=== PATIENT | male | born 1980 | race Caucasian/White ===

== ENCOUNTER 2021-05-10 14:02 | Emergency (ER) | payer MEDICARE, SELFPAY ==
--- NOTE | 2021-05-10 14:35 | HMH.EDUTC ---
[facility] [place] Disposition Clinical Impression: Viral syndrome Pharyngitis Qualifiers: Pharyngitis/tonsillitis etiology: unspecified etiology Qualified Code(s): J02.9 - Acute pharyngitis, unspecified Disposition: Home, Self-Care Condition on Discharge: Good Instructions: DI for Pharyngitis/Tonsillopharyngitis -- Adult, DI for COVID-19 (Suspected or Confirmed ), Preventing the Spread of Coronavirus Discharge Instructions Additional Instructions: Drink plenty of fluids. Take tylenol or ibuprofen for pain or fever. Take the medications as directed. Follow up with your regular doctor. GO TO THE ER FOR ANY WORSENING SYMPTOMS Quarantine until you know the results of your covid-19 test. Notify your school or workplace of your results and follow their instructions regarding return to work/school. Prescriptions: Ondansetron [Zofran 4mg ODT] 4 mg PO Q8HP PRN #20 tab PRN Reason: Nausea Transmission Status: Received by [facility] Benzonatate [Benzonatate 100mg cap] 100 mg PO TIDP PRN #30 cap PRN Reason: Cough Transmission Status: Received by [facility] Azithromycin [Z-Link 250mg Tab*] 250 mg PO UD DOSE PK #6 tab Transmission Status: Received by [facility] Referrals: Provider,Referral, [Primary Care Provider] - Time of Disposition: 15:05 Medical Decision Making - Medical Records Medical records reviewed: No: I reviewed the patient's medical records. - Ar Inquiry Pt receiving controlled substance: No Vital Signs: 05/10/21 14:51 05/10/21 15:01 Temperature 99.4 F 99.4 F Temperature Source Oral Pulse Rate 98 H Pulse Rate [Left] 98 H Respiratory Rate 18 18 Blood Pressure 121/75 Blood Pressure [Right Arm] 121/75 Blood Pressure Mean [Right Arm] 90 02 Sat by Pulse Oximetry 95 - Lab Data Lab results reviewed: Yes: I reviewed the patient's lab results. Lab Results 05/10/21 14:35: Strep Scn Rapid Clinic Negative Orders (Tests/Meds): ORDERS Category Date Time Status Strep Screen Confirmation Stat Micro 05/10/21 14:35 Received [facility] [place] HPI - General Stated complaint: cough,sore throat,congestion Time Seen by Provider: 05/10/21 14:35 - History of Present Illness Provider Complaint: He states for the past 2 days he has had a headache, chills, sore throat and body aches. He denies fever. He has been fully vaccinated against covid-19. - Related Data Previous Rx's Medication Instructions Recorded Azithromycin [Z-Link 250mg Tab*] 250 mg PO UD DOSE PK #6 tab 05/10/21 Benzonatate [Benzonatate 100mg 100 mg PO TIDP PRN #30 cap 05/10/21 cap] Ondansetron [Zofran 4mg ODT] 4 mg PO Q8HP PRN #20 tab 05/10/21 Allergies Allergy/AdvReac Type Severity Reaction Status Date / Time No Known Allergies Allergy Verified 05/10/21 14:53 [facility] History - Hepatitis A Screen Attestation statement:: This patient has been screened for Hepatitis A risk factors. I have reviewed the patient's past medical history: Yes ROS Obtained: Yes All systems reviewed & no additional complaints - Constitutional Constitutional: Reports as per HPI - Eyes Eyes: Denies eye discharge - ENT Ears, Nose, Mouth, and Throat: Reports as per HPI - Cardiovascular Cardiovascular: Denies chest pain - Respiratory Respiratory: Reports as per HPI - Gastrointestinal Gastrointestingal: Reports: as per HPI Physical Exam - General General appearance: alert, in no apparent distress - Head Head exam: atraumatic, normocephalic, normal inspection - Eye Eye exam: Present: normal appearance, PERRL, EOMI - ENT ENT exam: Present: normal exam, normal oropharynx, mucous membranes moist, TM's normal bilaterally, normal external ear exam - Neck Neck exam: Present: normal inspection, full ROM, trachea midline. Absent: meningismus, lymphadenopathy - Chest Chest inspection: Present: normal inspection, symmetric chest wall rise. Absent: tendernes
[2021-05-10 14:47] LABS: UTC Strep Screen (Rapid) Negative (Negative)
[2021-05-10 14:51] VITALS: BP 121/75; PULSE 98; RESP 18; TEMP 37.4; O2SAT 95; BMI 31.0
[2021-05-10 15:01] VITALS: BP 121/75; PULSE 98; RESP 18; TEMP 37.4
== END 2021-05-10 15:10 | disposition home or self-care (01) ==
PROVIDERS: Emergency Provider Nurse Practitioner Family; PCP Family Medicine
DX: U07.1 COVID-19 (principal); B34.9 Viral infection, unspecified
CPT/HCPCS: G0463; 87880; 99203; C9803; U0003; U0005

== ENCOUNTER 2021-06-28 05:01 | Inpatient (IN) | payer MEDICARE, BC, SELFPAY ==
[2021-06-28] VITALS (24 sets, daily range): BP systolic 85–131; BP diastolic 50–94; PULSE 67–90; RESP 14–22; TEMP 36.5–37.1; O2SAT 81–100; BMI 29.9; BMI 30.7
--- NOTE | 2021-06-28 | XR_ITS ---
PROCEDURE INFORMATION: Exam: XR Chest Exam date and time: 06/28/2021 5:05 AM Age: 40 years old Clinical indication: Sternal or substernal pain; Additional info: Stemi PT will be going to cardiac cath lab manager TECHNIQUE: Imaging protocol: XR of the chest. Views: 1 view. COMPARISON: No relevant prior studies available. FINDINGS: Tubes, catheters and devices: Left-sided pacemaker/AICD. Defibrillator lead overlying the left hemithorax. Lungs: No acute cardiopulmonary findings. Pleural spaces: No pleural effusion. No pneumothorax. Heart/Mediastinum: Cardiomegaly. Bones/joints: No acute findings. IMPRESSION: 1. No acute findings in the chest. 2. Cardiomegaly.
--- NOTE | 2021-06-28 | IR_ITS ---
APPROVED REPORT Patient Location: Emergent High Rigger: CARLOS Wilkes RT (R) PROCEDURES Left heart catheterization Left ventriculogram Selective coronary angiogram Mechanical thrombectomy to the mid LAD INDICATION Acute anterior ST elevation myocardial infarction, Informed consent was obtained prior to the procedure. COMPLICATIONS NONE Estimated Blood Loss: LESS THAN 10 ML TECHNIQUE One percent lidocaine was used to anesthetize the right groin. The right femoral artery was accessed via the Seldinger technique. A 6 Tamazight sheath was placed in the right femoral artery and a JL4 guide catheter was used to intubate the left main artery. Angiography demonstrated an occlusion of the mid LAD. A Choice PT extra-support wire was used to traverse the occlusion. A penumbra thrombectomy catheter was advanced into the mid LAD and passed several times. Repeat angiography demonstrated no improved perfusion. A 2.5 mm balloon was then advanced and inflated in the area at 12 radha also with no reperfusion. The penumbra catheter was advanced back into the mid LAD and passed. A thrombus clogged the penumbra catheter. The catheter was pulled back under negative pressure. Once the penumbra was out of the guide catheter a large aspiration was attempted however the guide catheter was also thrombosed. The entire guide catheter and wire were pulled out as a single unit under negative pressure. With the guide catheter out of the body forward flow produced a large black rubbery hard thrombus. Repeat angiography demonstrated LYNETTE-3 flow of the mid LAD with no demonstrable atherosclerotic plaque. LYNETTE 0 flow was initially present with LYNETTE-3 flow at the end of the procedure. No intra coronary stent was placed. Following this, the JR4 catheter was used to perform right coronary artery angiography as well as left heart catheterization and left ventriculogram. At the end of the procedure the apparatus was removed the groin is reprepped closure change sheath was removed and hemostasis was achieved using Perclose device patient was transferred to the postop putting her stable condition ANGIOGRAPHIC RESULTS The left main artery Normal The left anterior descending artery Has proximal and mid vessel luminal irregularities followed by an abrupt occlusion. Following thrombectomy of a large black rubbery hard thrombus the mid LAD was widely patent with no demonstrable atherosclerotic plaque with remaining vessel patent distally. The circumflex artery co-dominant with mild 10% luminal irregularities The right coronary artery Is codominant and has diffuse mid vessel and distal 30 and 40% stenoses The NORMAN ventriculogram reveals Severe left ventricular dilatation severely reduced ejection fraction estimated at 10% The left ventricular end-diastolic pressure 30 mmHg IMPRESSION Acute anterior myocardial infarction involving an occluded mid LAD with an unusual hard rubbery thrombus suspected to have embolized Successful thrombectomy of a hard rubbery subacute thrombus Severe left ventricular dilatation with severely reduced ejection fraction Elevated LVEDP PLAN 1. Plavix 75 mg daily plus aspirin 81 mg daily. Patient is already received Brilinta however Plavix can still be started today along with Lovenox and Coumadin. 2. Patient has known LV dysfunction and has now experienced what appears to be an embolic event to the coronary arteries. There is no angiographic evidence of atherosclerotic plaque or plaque rupture at the infarct/target vessel. The thrombus removed was more of a subacute thrombus and was hard and rubbery which is not consistent with acute plaque rupture. This is suspected to have been an embolu
--- NOTE | 2021-06-28 04:56 | ECG_ITS ---
APPROVED REPORT Exam: Resting ECG HR:79 bpm ECG Measurements Heart Rate 79 AXES MA 183 P 221 QRSd 128 QRS -52 QT 480 T 15 QTc 515 Conclusion ELECTRONIC ATRIAL PACEMAKER ELECTRONIC VENTRICULAR PACEMAKER ST ELEVATION, CONSIDER LATERAL INJURY [MARKED ST ELEVATION W/O NORMALLY INFLECTED T-WAVE IN I/aVL/V5/V6] ACUTE TN UNCONFIRMED REPORT Electronically signed by : Laith Locke MD 07/01/2021 16:53:57
--- NOTE | 2021-06-28 05:07 | PC.NURSE ---
0455 - Pt in room with acute chest pain 0458 - EKG completed & given to Dr. Davis - called Stemi Alert 0459 - EKG transmitted to Dr. Sommer 0500 - Dr. Davis s/w Dr. Sommer, he requested: Aspirin 324mg PO, Heparin 100units/kg, Brillinta 180mg PO, and to call laboratory director team 0501 - s/w malt house supervisor, Waqas Alvarez and notified Dr. Sommer request to call cath team. Zoll placed in bed and pads attached to pt. Pt changed in gown, bilat groin and R radial sites clipped.
[2021-06-28 05:11] LABS: Coronavirus 19, PCR Not Detected (NotDetected); Influenza A, PCR Not Detected (NotDetected); Influenza B, PCR Not Detected (NotDetected)
[2021-06-28 05:12] LABS: Eosinophils # 0.2 K/mm3 (0.0-0.4); Lymphocytes # 3.5 K/mm3 (0.7-4.5)
--- NOTE | 2021-06-28 05:17 | PC.NURSE ---
labor service representative paged.
[2021-06-28 05:18] LABS: Basophils # 0.3 K/mm3 (0-0.2); Basophils % 2.2 % (0.1-2.0); Eosinophils % 1.2 % (0.1-12.0); Hematocrit 56.8 % (42.0-52.0); Lymphocytes % 28.7 % (10-50); Mean Corpuscular HGB Conc 32.9 g/dL (31.8-35.4); Mean Corpuscular Hemoglobin 32.4 pg (27.0-31.2); Mean Corpuscular Volume 98.5 fl (80-94); Mean Platelet Volume 8.8 fl (7.4-10.4); Monocytes % 8.4 % (1.7-9.3); Neutrophils # 7.3 K/mm3 (1.8-7.8); Neutrophils % 59.6 % (37.0-80.0); Platelet Count 162 K/mm3 (142-424); Red Blood Count 5.77 M/mm3 (4.60-6.20); White Blood Count 12.3 K/mm3 (4.8-10.8)
--- NOTE | 2021-06-28 05:19 | PC.NURSE ---
ADMISSION LIAISON NAIMA. SPOKE WITH ALL MEMBERS OF CATH TEAM.
[2021-06-28 05:24] LABS: Hemoglobin 18.7 g/dL (14.1-18.0)
--- NOTE | 2021-06-28 05:26 | HMH.EDCP ---
ED Disposition Clinical Impression: Hypokalemia, Alcohol use disorder ST elevation myocardial infarction (STEMI) Qualifiers: Involved coronary artery: unspecified coronary artery Qualified Code(s): I21.3 - ST elevation (STEMI) myocardial infarction of unspecified site Disposition: Admitted As Inpatient Condition on Discharge: Serious Referrals: Carlos Zarco MD [Primary Care Provider] - - Critical Care Critical Care Time: No Attestation: On 06/28/21, the high probability of a clinically significant, sudden or life threatening deterioration of the following system(s) required my full and direct attention, intervention and personal management. The time I documented below is in addition to time spent performing reported procedures but includes the following listed in this critical care notation. Medical Decision Making - Medical Records Medical records reviewed: Yes: I reviewed the patient's medical records. - Ar Inquiry Pt receiving controlled substance: No Vital Signs: 06/28/21 05:01 Temperature 97.9 F Temperature Source Oral Pulse Rate [Right] 82 Respiratory Rate 22 Blood Pressure [Right Arm] 126/93 H Blood Pressure Mean [Right Arm] 104 Blood Pressure Source [Right Arm] Automatic Cuff 02 Sat by Pulse Oximetry 97 Oxygen Delivery Method Room Air - Lab Data Lab results reviewed: Yes: I reviewed the patient's lab results. Lab Results 06/28/21 05:02: WBC 12.3 H, RBC 5.77, Hgb 18.7 H, Hct 56.8 H, MCV 98.5 H, MCH 32.4 H, MCHC 32.9, RDW 17.0, Plt Count 162, MPV 8.8, Neut % (Auto) 59.6, Lymph % (Auto) 28.7, [place] % (Auto) 8.4, Eos % (Auto) 1.2, Baso % (Auto) 2.2 H, Neut # (Auto) 7.3, Lymph # (Auto) 3.5, [place] # (Auto) 1.0, Eos # (Auto) 0.2, Baso # (Auto) 0.3 H 06/28/21 05:02: Sodium 139, Potassium 2.6 L*, Chloride 97 L, Carbon Dioxide 27, Anion Gap 17.6 H, BUN 20, Creatinine 1.40 H, Estimated Creat Clear 90, Estimated GFR 56 L, Est GFR ( Amer) 68, Glucose 123 H, Calcium 9.1, Total Bilirubin 1.8 H, AST 46, ALT 33, Alkaline Phosphatase 103, Troponin I 0.04 H, Total Protein 8.1, Albumin 4.6, Globulin 3.5 H, Albumin/Globulin Ratio 1.3 06/28/21 05:02: Plasma/Serum Alcohol < 10 06/28/21 05:02: Magnesium 1.6 06/28/21 05:04: SARS-CoV-2 (PCR) Not detected, Influenza A Untype (PCR) Not detected, Influenza Type B (PCR) Not detected Result diagrams: 06/28/21 05:02 06/28/21 05:02 Orders (Tests/Meds): ED MEDICATIONS Generic Name Dose Route Start Last Admin Trade Name Freq PRN Reason Stop Dose Admin Diphenhydramine HCl 50 mg 06/28/21 05:26 Diphenhydramine 50mg/Ml Vial IV 06/28/21 05:27 ONCE ONE Fentanyl Citrate 25 mcg 06/28/21 05:26 Fentanyl 100mcg/2ml Vial IV 06/29/21 05:26 Q3MINP PRN Moderate to Severe Pain Fentanyl Citrate 50 mcg 06/28/21 05:26 Fentanyl 100mcg/2ml Vial IV 06/29/21 05:26 Q3MINP PRN Moderate to Severe Pain Fentanyl Citrate 25 mcg 06/28/21 05:26 Fentanyl 250mcg/5ml Vial IV 06/29/21 05:26 Q3MINP PRN Moderate to Severe Pain Fentanyl Citrate 50 mcg 06/28/21 05:26 Fentanyl 250mcg/5ml Vial IV 06/29/21 05:26 Q3MINP PRN Moderate to Severe Pain Flumazenil 0.2 mg 06/28/21 05:26 Flumazenil 0.1mg/Ml 5ml Vial IV 06/28/21 23:00 NEEDED PRN Sedation Heparin Sodium (Porcine) 10,000 unit 06/28/21 05:26 Heparin 1,000 Units/Ml 10ml Vial (Halftone Operator) IV 06/28/21 09:26 NEEDED PRN Emergency Box On Call Pharmacy Technician Heparin Sodium/Sodium Chloride 3,000 unit 06/28/21 05:26 Heparin 1,000 Units/500ml Ns (Halftone Operator) IV 06/28/21 05:27 ONCE ONE Sodium Chloride 1,000 mls @ 25 mls/hr 06/28/21 05:30 Sod Chlor 0.9% 1000ml Bag IV 06/29/21 05:26 .Q25H GERALD Lidocaine HCl 20 ml 06/28/21 05:26 Lidocaine 1% 5ml Pf Vial IJ 06/28/21 05:27 ONCE ONE Lidocaine HCl 20 ml 06/28/21 05:26 Lidocaine 1% 10ml Mdv IJ 06/28/21 05:27 ONCE ONE Midazolam HCl 1 mg 06/28/21 05:2
[2021-06-28 05:30] LABS: Chloride 97 mmol/L (98-107); Sodium 139 mmol/L (136-145)
--- NOTE | 2021-06-28 05:30 | PC.NURSE ---
Dr. Davis notified of critical potassium
[2021-06-28 05:31] LABS: Potassium 2.6 mmoL/L (3.5-5.1)
[2021-06-28 05:33] LABS: Alanine Aminotransferase 33 U/L (12-78); Albumin Level 4.6 g/dl (3.5-5.0); Albumin/Globulin Ratio 1.3 (1.1-1.8); Alkaline Phosphatase 103 U/L (38-126); Anion Gap 17.6 mEq/L (5-15); Aspartate Amino Transferase 46 U/L (17-59); Bilirubin,Total 1.8 mg/dl (0.2-1.3); Blood Urea Nitrogen 20 mg/dl (9-20); Carbon Dioxide 27 mmol/L (22.0-30.0); Creatinine Clearance Estimated 90 mL/min (50-200); Estimated Glomerular Filt Rate 56 ml/min (>60); GFR (African American) 68 ML/MIN (>60); Globulin 3.5 g/dL (1.3-3.2); Total Protein,Serum 8.1 g/dl (6.3-8.2)
[2021-06-28 05:34] LABS: Calcium 9.1 mg/dl (8.4-10.2); Ethyl Alcohol < 10 mg/dl (0-10); Glucose 123 mg/dl (74-100)
--- NOTE | 2021-06-28 05:34 | PC.NURSE ---
0507 - Dr. Davis s/w Dr. Locke for admission. 0508 - s/w pt and with POC 0513 - Pt given morphine & zofran for pain & nausea 0524 - salvage laborer called and stated they ready for pt. framing mill supervisor & Pratima Hess RN escorting pt & to orthodontic lab technician.
[2021-06-28 05:42] LABS: Magnesium 1.6 mg/dl (1.6-2.3)
[2021-06-28 05:45] LABS: Troponin I 0.04 ng/ml (0.00-0.034)
[2021-06-28 06:33] LABS: CATHL Activated Clotting Time 225 SEC (74-125)
--- NOTE | 2021-06-28 06:39 | PC.NURSE ---
patient up to floor via stretcher @ this time.
--- NOTE | 2021-06-28 08:30 | P.CONPHA_ITS ---
[facility] Pharmacy VTE Monitoring - Patient Demographics Admission date: 06/28/21 Report Date: 06/28/21 Time: 08:31 Allergies/Adverse Reactions: Patient Allergies No Known Allergies Allergy (Verified 05/10/21 14:53) Height: 1.75 m Weight: 92.079 kg Patient Problems: Current Active Problems ST elevation myocardial infarction (STEMI) (Acute) Hypokalemia (Acute) Alcohol use disorder (Acute) - VTE Risk Labs: VTE Related Lab Results Hgb 18.7 g/dL (14.1-18.0) H 06/28/21 05:02 Hct 56.8 % (42.0-52.0) H 06/28/21 05:02 Plt Count 162 K/mm3 (142-424) 06/28/21 05:02 BUN 20 mg/dl (9-20) 06/28/21 05:02 Creatinine 1.40 mg/dl (0.66-1.25) H 06/28/21 05:02 Estimated Creat Clear 90 mL/min (50-200) 06/28/21 05:02 - Prophylaxis Types of VTE Prophylaxis: TEDS Knee High Location of Applied Device: Bilateral Lower Extremeties (JULIO HOSE ORDERED)
--- NOTE | 2021-06-28 09:09 | HMH.HP ---
*Admission Date: 06/28/21 *Chief complaint: Chest pain and shortness of air *History of present illness: 40-year-old white male with history of congenital cardiomyopathy, status post AICD and biventricular pacer placed 3 years ago with severe ejection fraction reduction of 10 to 15% at baseline, who also is a chronic alcoholic, drinking 1/2 gallon of tequila every 24-48 hours as well as being a heavy smoker. In spite of all this he is relatively functional and has been functionally walking around and doing his normal activities of daily living until early this morning when he began to have chest pain and shortness of air that rendered him unable to sleep. Came to the emergency department. EKG criteria for STEMI was made along with troponin elevation he was taken to the Usability Strategist. Found to have severely reduced ejection fraction but did have LAD plaque that was somewhat rubbery and felt to be from an embolic source that was successfully stented. Transition to the floor in good condition. [facility] History I have reviewed the patient's past medical history: Yes Medical History: Reports:: Cardiomyopathy (Diagnosed with cardiomyopathy 3 years ago.), Congestive Heart Failure, Gastroesophageal Reflux Disease(GERD) *Have you ever received a pneumonia vaccine?: No *Have you received a flu vaccine this season?: Yes Other Medical History: Reports: Other (Chronic alcoholism) Comment:: Has had withdrawal seizures from alcohol cessation before. Mother of cardiomyopathy 3 years ago, they have been told this is a hereditary problem. Other Surgeries: Yes: Pacemaker - *Social History Last grade of school completed: High school graduate Smoking Status: Current every day smoker # Packs/Day (cigarettes): 2 Alcohol Intake: current Alcohol Intake Frequency:: other (Saw his family physician 4 days ago and received prescription for daily Ativan and Antabuse) *Occupational Status:: unemployed *Travel in the last 8 weeks: None Family Hx:: Other Review of Systems - Review of Systems Review of systems:: pertinent systems reviewed and negative unless documented below - *Neurologic Denies headache(s), Denies seizure-like activity Meds Home Medications Medication Instructions Recorded Confirmed Type Disulfiram 500 mg PO DAILY 06/28/21 06/28/21 History Folic Acid [Folic Acid 1mg tablet] 1 mg PO DAILY 06/28/21 06/28/21 History LORazepam [Lorazepam 1mg Tablet] 1 mg PO DAILY 06/28/21 06/28/21 History Multivitamin with Folic Acid 400 mcg PO DAILY 06/28/21 06/28/21 History [Tab-A-Martha Tablet] Spironolactone [Spironolactone 25 mg PO DAILY 06/28/21 06/28/21 History 25mg Tablet] Vitamin B Complex 1 each PO DAILY 06/28/21 06/28/21 History Allergies Allergy/AdvReac Type Severity Reaction Status Date / Time No Known Allergies Allergy Verified 05/10/21 14:53 Exam Vital signs and Labs for Last 24 Hours: Temp Pulse Resp BP Pulse Ox 98.0 F 70 20 94/60 L 93 L 06/28/21 07:00 06/28/21 08:00 06/28/21 07:00 06/28/21 07:00 06/28/21 07:00 Laboratory Results - last 24 hr 06/28/21 05:02: WBC 12.3 H, RBC 5.77, Hgb 18.7 H, Hct 56.8 H, MCV 98.5 H, MCH 32.4 H, MCHC 32.9, RDW 17.0, Plt Count 162, MPV 8.8, Neut % (Auto) 59.6, Lymph % (Auto) 28.7, [place] % (Auto) 8.4, Eos % (Auto) 1.2, Baso % (Auto) 2.2 H, Neut # (Auto) 7.3, Lymph # (Auto) 3.5, [place] # (Auto) 1.0, Eos # (Auto) 0.2, Baso # (Auto) 0.3 H 06/28/21 05:02: Sodium 139, Potassium 2.6 L*, Chloride 97 L, Carbon Dioxide 27, Anion Gap 17.6 H, BUN 20, Creatinine 1.40 H, Estimated Creat Clear 90, Estimated GFR 56 L, Est GFR ( Amer) 68, Glucose 123 H, Calcium 9.1, Total Bilirubin 1.8 H, AST 46, ALT 33, Alkaline Phosphatase 103, Troponin I 0.04 H, Total Protein 8.1, Albumin 4.6, Globulin 3.5 H, Albumin/Globulin Ratio 1.3 06/28/21 05:02: Plasma/Serum Alcohol < 10 06/28/21 05:02: Magnesium 1.6 06/28/21 05:04: SARS-CoV-2 (PCR) Not detected, Influenza A Untype (PCR) Not detected, Influenza Type B (PCR)
[2021-06-28 13:48] LABS: INR 1.04 (0.9-1.1); Prothrombin Time 11.7 seconds (10.1-12.5)
[2021-06-29] VITALS (15 sets, daily range): BP systolic 76–115; BP diastolic 48–70; PULSE 86–102; RESP 15–20; TEMP 36.4–37.2; O2SAT 92–99; BMI 31.0
--- NOTE | 2021-06-29 06:52 | PC.NURSE ---
pt has rested t/o shift, no complaints of pain or SOA, has worn 2L NC with O2 sats 93-98%, HR 83-100, has been hypotensive, but map has been greater than 65 and systolic has been greater than 90, ambulating independently
[2021-06-29 07:33] LABS: Basophils # 0.1 K/mm3 (0-0.2); Basophils % 0.9 % (0.1-2.0); Eosinophils # 0.2 K/mm3 (0.0-0.4); Hematocrit 50.9 % (42.0-52.0); Hemoglobin 16.5 g/dL (14.1-18.0); Lymphocytes # 2.4 K/mm3 (0.7-4.5); Lymphocytes % 22.4 % (10-50); Mean Corpuscular HGB Conc 32.3 g/dL (31.8-35.4); Mean Corpuscular Hemoglobin 32.5 pg (27.0-31.2); Mean Corpuscular Volume 100.5 fl (80-94); Mean Platelet Volume 8.5 fl (7.4-10.4); Monocytes # 0.9 K/mm3 (0.1-1.0); Monocytes % 8.4 % (1.7-9.3); Neutrophils % 66.3 % (37.0-80.0); Platelet Count 145 K/mm3 (142-424); Red Blood Count 5.07 M/mm3 (4.60-6.20); Red Cell Distribution Width 16.6 % (11.5-17.5); White Blood Count 10.6 K/mm3 (4.8-10.8)
[2021-06-29 07:36] LABS: INR 1.01 (0.9-1.1); Prothrombin Time 11.4 seconds (10.1-12.5)
[2021-06-29 08:33] LABS: Alanine Aminotransferase 100 U/L (12-78); Albumin Level 3.5 g/dl (3.5-5.0); Albumin/Globulin Ratio 1.3 (1.1-1.8); Alkaline Phosphatase 76 U/L (38-126); Anion Gap 6.3 mEq/L (5-15); Aspartate Amino Transferase 591 U/L (17-59); Bilirubin,Total 1.1 mg/dl (0.2-1.3); Blood Urea Nitrogen 19 mg/dl (9-20); Calcium 8.8 mg/dl (8.4-10.2); Carbon Dioxide 32 mmol/L (22.0-30.0); Chloride 101 mmol/L (98-107); Creatinine Clearance Estimated 145 mL/min (50-200); Estimated Glomerular Filt Rate 93 ml/min (>60); GFR (African American) 113 ML/MIN (>60); Globulin 2.8 g/dL (1.3-3.2); Glucose 150 mg/dl (74-100); Magnesium 1.7 mg/dl (1.6-2.3); Potassium 4.3 mmoL/L (3.5-5.1); Sodium 135 mmol/L (136-145); Total Protein,Serum 6.3 g/dl (6.3-8.2)
--- NOTE | 2021-06-29 08:53 | HMH.ACPN2 ---
Internal Medicine - PN: Subj *Date: 06/29/21 *Time: 08:53 Interval history: Patient did well overnight. Blood pressure has been appropriately lowered with his medications. He has had no further chest pains or pressure, has been up in a chair out of the bed and is walked to the bathroom. He does note that he feels like he is coughing somewhat and thinks that he has fluid accumulated in his chest and wonders about restarting his torsemide. Exam Vital signs and Labs for Last 24 Hours: Temp Pulse Resp BP Pulse Ox 98.8 F 100 H 18 95/55 L 97 06/29/21 08:00 06/29/21 06:00 06/29/21 06:00 06/29/21 06:00 06/29/21 06:00 Laboratory Results - last 24 hr 06/28/21 13:05: PT 11.7, INR 1.04 06/29/21 06:25: PT 11.4, INR 1.01 06/29/21 06:25: WBC 10.6, RBC 5.07, Hgb 16.5, Hct 50.9, MCV 100.5 H, MCH 32.5 H, MCHC 32.3, RDW 16.6, Plt Count 145, MPV 8.5, Neut % (Auto) 66.3, Lymph % (Auto) 22.4, [place] % (Auto) 8.4, Eos % (Auto) 2.0, Baso % (Auto) 0.9, Neut # (Auto) 7.0, Lymph # (Auto) 2.4, [place] # (Auto) 0.9, Eos # (Auto) 0.2, Baso # (Auto) 0.1 06/29/21 08:00: Sodium 135 L, Potassium 4.3 D, Chloride 101, Carbon Dioxide 32 H, Anion Gap 6.3, BUN 19, Creatinine 0.90 D, Estimated Creat Clear 145, Estimated GFR 93, Est GFR ( Amer) 113 D, Glucose 150 H, Calcium 8.8, Magnesium 1.7, Total Bilirubin 1.1, AST 591 H* D, ALT 100 H D, Alkaline Phosphatase 76, Total Protein 6.3, Albumin 3.5 D, Globulin 2.8, Albumin/Globulin Ratio 1.3 I & O for Last 24 hours: Intake & Output 06/26/21 06/27/21 06/28/21 06/29/21 11:59 11:59 11:59 11:59 Intake Total 480 / 480 1180 / 1180 Balance 480 / 480 1180 / 1180 Weight 208 lb 3.2 oz 209 lb 8 oz - Constitutional no acute distress - *Routine HEENT Exam Head: Present: normocephalic Eye: Present: EOMI, PERRL ENT: Present: mucous membranes moist - *Routine Neck Exam Present: supple. Absent: lymphadenopathy - *Routine Respiratory Exam Present: rhonchi - *Routine Cardiovascular Exam Present: RRR, gallop - *Routine Abdominal Exam Present: soft, normoactive bowel sounds. Absent: tenderness - *Routine Extremities Exam Absent: cyanosis, clubbing, edema - *Routine Skin Exam Present: warm. Absent: rash - *Routine Neurological Exam Present: alert, oriented X3 Assessment and Plan (1) Cardiomyopathy Status: Acute Category: Medical Code(s): I42.9 - Cardiomyopathy, unspecified (2) CHF NYHA class IV Status: Acute Category: Medical Code(s): I50.9 - Heart failure, unspecified (3) Chronic alcoholism Status: Acute Category: Medical Code(s): F10.20 - Alcohol dependence, uncomplicated (4) Personal history of nicotine dependence Status: Acute Category: Medical Code(s): Z87.891 - Personal history of nicotine dependence (5) ST elevation myocardial infarction (STEMI) Status: Acute Qualifiers: Involved coronary artery: unspecified coronary artery Qualified Code(s): I21.3 - ST elevation (STEMI) myocardial infarction of unspecified site Category: Medical Code(s): I21.3 - ST elevation (STEMI) myocardial infarction of unspecified site - Assessment and plan all Dx Assessment and Plan for all problems:: 1. Status post stent placement. Continue current platelet therapy. 2. Severe cardiomyopathy-baseline medications restarted. Will restart torsemide today given improvement in kidney function and patient symptomatology. 3. Given possible embolic nature of arterial blockage anticoagulation therapy has been started. 4. Cough and rhonchi. Given patient's heavy smoking history we will start nebulizer treatments.
--- NOTE | 2021-06-29 18:53 | PC.NURSE ---
Pt has done well this shift, CIWA scores have all been below 2. Pt has been RA this shift, no requirement of supplemental o2 needed. Pt has ambulated independently in room this shift. No other acute changes or complaints, will continue to monitor.
[2021-06-30] VITALS (7 sets, daily range): BP systolic 91–120; BP diastolic 66–75; PULSE 88–104; RESP 17–18; TEMP 37.1–37.3; O2SAT 93–100; BMI 31.2
--- NOTE | 2021-06-30 05:27 | PC.NURSE ---
pt has rested t/o shift, has remained on room air with O2 sats 93-99%, no complaints of chest pain or SOA, telemetry strips have shown paced, HR 96-104, CIWAs have been 0 this shift, pt ambulating independently to BR
[2021-06-30 06:27] LABS: INR 1.07 (0.9-1.1)
[2021-06-30 06:31] LABS: Anion Gap 8.9 mEq/L (5-15); Blood Urea Nitrogen 19 mg/dl (9-20); Carbon Dioxide 29 mmol/L (22.0-30.0); Chloride 105 mmol/L (98-107); Creatinine Clearance Estimated 146 mL/min (50-200); Estimated Glomerular Filt Rate 93 ml/min (>60); GFR (African American) 113 ML/MIN (>60); Glucose 114 mg/dl (74-100); Potassium 3.9 mmoL/L (3.5-5.1); Sodium 139 mmol/L (136-145)
[2021-06-30 06:37] LABS: Basophils % 0.1 % (0.1-2.0); Eosinophils # 0.1 K/mm3 (0.0-0.4); Hematocrit 51.6 % (42.0-52.0); Hemoglobin 16.3 g/dL (14.1-18.0); Lymphocytes # 2.4 K/mm3 (0.7-4.5); Lymphocytes % 24.5 % (10-50); Mean Corpuscular HGB Conc 31.6 g/dL (31.8-35.4); Mean Corpuscular Hemoglobin 31.7 pg (27.0-31.2); Mean Corpuscular Volume 100.5 fl (80-94); Mean Platelet Volume 8.6 fl (7.4-10.4); Monocytes # 0.7 K/mm3 (0.1-1.0); Monocytes % 7.5 % (1.7-9.3); Neutrophils # 6.7 K/mm3 (1.8-7.8); Platelet Count 157 K/mm3 (142-424); Red Blood Count 5.14 M/mm3 (4.60-6.20); Red Cell Distribution Width 16.2 % (11.5-17.5); White Blood Count 9.9 K/mm3 (4.8-10.8)
--- NOTE | 2021-06-30 09:06 | CA_ITS ---
APPROVED REPORT EXAM: Comprehensive 2D, Doppler, and color-flow Echocardiogram Metal Handler: Salima Dickerson RDCS Ht: 5 ft 9 in Wt: 208lbs BSA: 2.10 BP: 95/56 mmHg Indications: BUBBLE STUDY ?PFO,CMP,ETOH ABUSE,CHF M-Mode Dimensions RVDd 1.66 cm (0.9-2.6) LA Diam 3.95 cm (1.9-4.0) LVDd 8.61 cm (3.5-5.7) Ao Diam 3.95 cm (2.0-3.7) LVDs 7.94 cm (3.5-5.7) IVSd 0.90 cm (0.6-1.1) PWd 0.94 cm (0.6-1.1) EF (Teich) 16.50% FS 7.80% EDV (Teich) 405.80 mL ESV (Teich) 338.90 mL LV Diastology E Decel Time 150.00 (160-240 msec) E/A Ratio 0.9 MED E' 4.10 (< 7 cm/sec) E'/MED E' Ratio 10.41 (>14) LAT E' 4.30 (<10 cm/sec) E/LAT E' Ratio 9.93 (>14) Mitral Valve MV E Max Moncho. 43.00 (40-130 cm/s) MV A Velocity 50.00 (40-130 cm/s) E/A Ratio 0.86 MV Decel. Time 150.00 (160-240 ms) MV PHT 44.00 ms Left Ventricle Left atrium is mildly enlarged, left ventricle is mildly dilated, severe reduced left ventricular systolic function, visually estimated ejection fraction 25%, left ventricle is globally hypokinetic. Diastolic parameters are inconclusive. Doppler evidence of low cardiac output state seen. Right Ventricle Right atrium and right ventricle are normal size and contractility, there is catheter noted in the right ventricle which is likely AICD or a pacemaker lead. Aortic Valve Aortic valve is minimally thickened and fibrosed there is no aortic stenosis or aortic insufficiency. Mitral Valve Mitral valve is grossly normal, there is mild to moderate mitral regurgitation. Tricuspid Valve Tricuspid valve grossly normal, there is mild tricuspid regurgitation, tricuspid regurgitation jet velocity is inadequate for calculation of the right ventricular systolic pressure. Pulmonic Valve Pulmonic valve is poorly visualized. Great Vessels Aortic root is normal size. Inferior vena cava is poorly visualized. Pericardium No significant pericardial effusion noted. Conclusion 1. Mildly enlarged left atrium, dilated left ventricle, severe reduced left ventricular systolic function, visually estimated ejection fraction 25%, left ventricle is globally hypokinetic, Doppler evidence of low cardiac output state seen. Diastolic parameters are inconclusive. 2. Mild to moderate mitral and mild tricuspid regurgitation. 3. No significant pericardial effusion. 4. Inferior vena cava is poorly visualized. Electronically signed by : Misbah Bañuelos MD 06/30/2021 09:57:51
--- NOTE | 2021-06-30 09:45 | HMH.CNCARD ---
History of Present Illness Consult date: 06/30/21 Requesting physician: Laith Locke Consult reason: chest pain Chief complaint: STEMI Additional Medical History:: 1. Congenital cardiomyopathy A. 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 Pa Escobar, last interrogated February 2021. Notation of recurrent nonsustained VT and one episode of VF requiring treatment on 03/05/2021. B. Ejection fraction 10-15% C. Systolic congestive heart failure D. STEMI, 06/28/2021, hard rubbery substance removed from the LAD without identification of intraluminal plaque. Suspect embolic source versus thrombus. Recommend long-term anticoagulation with Coumadin in addition to aspirin and Plavix. 2. Alcohol abuse 3. Tobacco abuse 4. Hypertension 5. Hyperlipidemia History of present illness: 40-year-old white male with history of congenital cardiomyopathy, status post AICD and biventricular pacer placed 3 years ago with severe ejection fraction reduction of 10 to 15% at baseline, who also is a chronic alcoholic, drinking 1/2 gallon of tequila every 24-48 hours as well as being a heavy smoker. In spite of all this he is relatively functional and has been functionally walking around and doing his normal activities of daily living until early this morning when he began to have chest pain and shortness of air that rendered him unable to sleep. Came to the emergency department. 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 Found to have severely reduced ejection fraction but did have LAD plaque that was somewhat rubbery and felt to be from an embolic source that was successfully stented. Transition to the floor in good condition. The above per Dr. Locke. Events confirmed as noted above with the patient and his . Patient denies any chest pain, pressure or tightness at this time. He normally follows up with Dr. 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 History Medical History: Reports:: Cardiomyopathy (Diagnosed with cardiomyopathy 3 years ago.), Congestive Heart Failure, Gastroesophageal Reflux Disease(GERD), Hyperlipidemia, Hypertension, Internal Pacemaker Denies:: Diabetes Mellitus Type 1, Diabetes Mellitus Type 2 *Have you ever received a pneumonia vaccine?: No *Have you received a flu vaccine this season?: Yes Other Medical History: Reports: Other (Chronic alcoholism) Other Surgeries: Yes: Pacemaker - *Social History Last grade of school completed: High school graduate Smoking Status: Current every day smoker # Packs/Day (cigarettes): 2 Alcohol Intake: current Alcohol Intake Frequency:: 3 or more drinks per day *Occupational Status:: disabled Household Members: spouse *Travel in the last 8 weeks: None Family Hx:: Cancer, Diabetes, Heart Attack, Hyperlipidemia, Hypertension, Kidney Disease, Stroke, Substance abuse, Alcoholism, Mental illness Meds Home Medications Medication Instructions Recorded Confirmed Type Bisoprolol Fumarate [Bisoprolol 5 mg PO DAILY 06/28/21 06/28/21 History 5mg Tablet] Disulfiram 500 mg PO DAILY 06/28/21 06/28/21 History Folic Acid [Folic Acid 1mg tablet] 1 mg PO DAILY 06/28/21 06/28/21 History Ivabradine HCl [Corlanor] 5 mg PO BID 06/28/21 06/28/21 History LORazepam [Lorazepam 1mg Tablet] 1 mg PO Q6H 06/28/21 06/28/21 History Multivitamin with Folic Acid 400 mcg PO DAILY 06/28/21 06/28/21 History [Tab-A-Martha Tablet] Spironolactone [Spironolactone 25 mg PO HS 06/28/21 06/28/21 History 25mg Tablet] Torsemide [Demadex 20mg tablet] 20 mg PO DAILY 06/28/21 06/28/21 History Vitamin B Complex 1 each PO DAILY 06/28/21 06/28/21 History lisinopriL [Zestril 5mg 5 mg PO BID 06/28/21 06/28/21 History Tablet] Allergies Allergy/AdvReac Type Severity Reaction Status Date / Time No Known Allergies Allergy Verified 05/10/21 14:53 Exam Vital signs and Labs for Last 24 Hours: Temp Pulse Resp BP Pulse Ox 98.8 F 100 H 18 105/67 L
--- NOTE | 2021-06-30 12:18 | HMH.DCSUM ---
General - General Admission date:: 06/28/21 Discharge date: 06/30/21 HPI HPI: 40-year-old white male with history of congenital cardiomyopathy, status post AICD and biventricular pacer placed 3 years ago with severe ejection fraction reduction of 10 to 15% at baseline, who also is a chronic alcoholic, drinking 1/2 gallon of tequila every 24-48 hours as well as being a heavy smoker. In spite of all this he is relatively functional and has been functionally walking around and doing his normal activities of daily living until early this morning when he began to have chest pain and shortness of air that rendered him unable to sleep. Came to the emergency department. EKG criteria for STEMI was made along with troponin elevation he was taken to the Nuclear Medicine Technologist. Found to have severely reduced ejection fraction but did have LAD plaque that was somewhat rubbery and felt to be from an embolic source that was successfully stented. Transition to the floor in good condition. Hospital Course Hospital Course: Given significant findings of new possibly embolic cardiovascular arterial plaque patient was started on warfarin therapy. Other heart failure medications were continued. His torsemide was held for a day because of slight creatinine bump but as this improved torsemide was restarted with good diuresis and a good feeling of improved respiratory mechanics per the patient. Long talk with patient about his significant cigarette and alcohol abuse. His primary care physician had recently started Ativan therapy and he has been off alcohol for 5 days before admission. I encouraged him in this effort and we discussed the significant cardiac toxicity of his high-dose alcohol use. I recommended continuing Ativan I will prescribe this for discharge. Patient did well after the heart cath, tolerated medications well. He had no bleeding. No further chest pain, and his pacer/AICD seem to be functioning well based on heart rate and its appearance on the monitor. Patient wished to go home today. Echocardiogram was done before discharge. There was a question from the tech about possible vegetation on his valve but cardiology felt this was from the wires from his AICD box and felt this could be followed as an outpatient and perhaps his regular it network engineer might consider a LORY as an outpatient. Patient's is very on top of his medical care and is already scheduled follow-up with his it network engineer this coming July 03 at 7:45 AM. We will keep this appointment. We will continue his CHF medications and add warfarin therapy based on the cardiology recommendations here. Most recent cardiology recommendations from today are pasted below: 1. STEMI, status post thrombectomy of hard, rubbery substance felt to be embolic versus thrombus. Patient did get balloon angioplasty of the LAD during the cardiac catheterization but no stent was placed. Echocardiogram with bubble study was performed this morning to evaluate for possible PFO and a source for paradoxical embolus. Long-term anticoagulation with Coumadin is recommended in light of the patient's severe cardiomyopathy. Patient will continue aspirin and Plavix therapy as well. 2. Congenital cardiomyopathy with AICD in situ, continue beta-pepe, Corlanor and RHONA inhibitor therapy along with diuretic therapy of spironolactone and torsemide. 3. Alcohol abuse, discontinuation strongly encouraged 4. Tobacco use, cessation strongly encouraged 5. Chronic systolic congestive heart failure Patient will be discharged home today with follow-up in [facility] and new prescription for Ativan and nicotine patch. As well as warfarin prescription. Objective Vital signs: Temp Pulse Resp BP Pulse Ox 98.8 F 100 H 18 105/67 L 100 06/30/21 04:00 06/30/21 06:04 06/30/21 06:00 06/30/21 06:00 06/30/21 06:04 no acute distress - *Routine HEENT Exam Head: Present: normocephalic Eye:
--- NOTE | 2021-06-30 15:47 | ECG_ITS ---
APPROVED REPORT Exam: Resting ECG HR:75 bpm ECG Measurements Heart Rate 75 AXES MD 168 P 49 QRSd 101 QRS -88 QT 471 T 134 QTc 500 Conclusion ELECTRONIC VENTRICULAR PACEMAKER ABNORMAL RHYTHM ECG UNCONFIRMED REPORT Electronically signed by : Laith Locke MD 07/01/2021 16:50:53
--- NOTE | 2021-07-01 11:42 | CARE MANAGER ---
Attempted to reach patient related to hospital discharge. Left VM message. GUILLE Regan
== END 2021-06-30 13:00 | disposition home or self-care (01) | DRG 251 ==
LOC: ER 05:54 → 2ND 06:18 → CATHLAB 06:47 → 2ND 09:38
PROVIDERS: Internal Medicine; Admitting Provider Internal Medicine Adolescent Medicine; Emergency Provider Emergency Medicine; PCP Family Medicine; Visit Provider Internal Medicine Adolescent Medicine
PROC: 4A023N7 Measurement of Cardiac Sampling and Pressure, Left Heart, Percutaneous Approach (ICD-10-PCS; principal; 2021-06-28 05:30)
DX: I21.09 ST elevation (STEMI) myocardial infarction involving other coronary artery of anterior wall (principal); I42.4 Endocardial fibroelastosis; F10.20 Alcohol dependence, uncomplicated; I25.10 Atherosclerotic heart disease of native coronary artery without angina pectoris; F17.210 Nicotine dependence, cigarettes, uncomplicated; I50.9 Heart failure, unspecified; Z71.6 Tobacco abuse counseling; Z20.822 Contact with and (suspected) exposure to COVID-19
CPT/HCPCS: 36415; 71045; 80048; 80053; 83735; 84484; 85025; 85347; 85610; 92973; 93005; 93306; 93458; 93970; 94640; 96374; 96375; 99152; 99153; 99285; C1725; C1760; C1769; C1894; C9803; J1644; J2405; Q9967; U0003; U0005

== ENCOUNTER 2023-09-11 19:22 | Emergency (ER) | payer MEDICARE, SELFPAY ==
--- NOTE | 2023-09-11 19:26 | XR_ITS ---
PROCEDURE INFORMATION: Exam: XR Chest Exam date and time: 09/11/2023 7:19 PM Age: 43 years old Clinical indication: Shortness of breath; Additional info: SOB TECHNIQUE: Imaging protocol: Radiologic exam of the chest. Views: 2 views. COMPARISON: CR XR CHEST PORTABLE 06/28/2021 5:05 AM FINDINGS: Tubes, catheters and devices: Left-sided cardiac device and 3 lead wires are radiographically intact. Lungs: 1.5 cm nodule related to the left upper lobe. Perihilar reticular opacities and peribronchial thickening. No airspace consolidation. Pleural spaces: No pleural effusion. No pneumothorax. Heart/Mediastinum: Cardiomegaly. Bones/joints: No fractures or bone lesions. IMPRESSION: 1. 1.5 cm nodule superimposed upon the left upper lobe is unchanged since 06/28/2021 and believed to be the costochondral junction of the 2nd rib. 2. Cardiomegaly is unchanged. 3. Bilateral perihilar opacities could represent pulmonary edema or pneumonia.
[2023-09-11 19:35] VITALS: BP 133/90; PULSE 111; RESP 18; TEMP 36.8; O2SAT 97; BMI 34.2
--- NOTE | 2023-09-11 19:42 | EXP.UTC ---
Discharge Plan Disposition Patient Disposition: Home, Self-Care Condition: Good Prescriptions Prescriptions: New amoxicillin 500 mg tablet 500 mg PO TID 10 Days Qty: 30 0RF benzonatate 100 mg capsule 100 mg PO TIDP PRN (Reason: Cough) Qty: 30 0RF hydroxyzine HCl 25 mg tablet 25 mg PO BID PRN (Reason: anxiety) Qty: 20 0RF No Action vitamin B complex 1 EACH tablet 1 each PO DAILY disulfiram 500 MG tablet 500 mg PO DAILY spironolactone 25 MG tablet 25 mg PO HS folic acid 1 MG tablet 1 mg PO DAILY lorazepam 1 MG tablet 1 mg PO Q6H multivitamin with folic acid 400 MCG tablet 400 mcg PO DAILY torsemide 20 MG tablet 20 mg PO DAILY lisinopril 5 MG tablet 5 mg PO BID bisoprolol fumarate 5 MG tablet 5 mg PO DAILY ivabradine 5 MG tablet 5 mg PO BID warfarin 5 MG tablet 5 mg PO 1700 Qty: 30 0RF nicotine 21 MG/PATCH patch 24 hour 21 mg TD DAILYP PRN (Reason: Nicotine Cravings) Qty: 30 0RF lorazepam 1 MG tablet 1 mg PO QID Qty: 40 0RF Rx Instructions: For withdrawal symptoms or anxiety Referrals Follow up/Referrals: Carlos Zarco MD [Primary Care Provider] - See instructions Activity Restrictions/Add. Instructions Additional Instructions/Restrictions: Take tylenol n for pain or fever. Take the medications as directed. Follow up with your regular doctor. Call them on Wednesday morning to be rechecked there within the next 48 hours. GO TO THE ER FOR ANY WORSENING SYMPTOMS Clinical Impressions Clinical Impression: Acute bronchitis Instructions Patient Instructions: DI for Acute Bronchitis Discharge ED Provider: Luis M Salcido [facility] [place] General Stated complaint: chest congestion Time Seen by Provider: 09/11/23 19:38 History of Present Illness Provider Complaint: He states that for the 3 days he has had worsening chest congestion. When he lays down in the bed at night his cough and congestion gets worse. He denies any fever/chills. He denies any chest pain. He denies shortness of breath. He denies any dependent edema. Related Data Home Medications Medication Instructions Recorded Confirmed bisoprolol fumarate 5 mg tablet 5 mg PO DAILY BLOOD PRESSURE 06/28/21 06/28/21 disulfiram 500 mg tablet 500 mg PO DAILY alcoholism 06/28/21 06/28/21 folic acid 1 mg tablet 1 mg PO DAILY Supplement 06/28/21 06/28/21 ivabradine 5 mg tablet 5 mg PO BID Heart failure 06/28/21 06/28/21 lisinopril 5 mg tablet 5 mg PO BID BLOOD PRESSURE 06/28/21 06/28/21 lorazepam 1 mg tablet 1 mg PO Q6H Anxiety 06/28/21 06/28/21 multivitamin with folic acid 400 400 mcg PO DAILY Supplement 06/28/21 06/28/21 mcg tablet spironolactone 25 mg tablet 25 mg PO HS chf 06/28/21 06/28/21 torsemide 20 mg tablet 20 mg PO DAILY Fluid 06/28/21 06/28/21 vitamin B complex 1 each PO DAILY Supplement 06/28/21 06/28/21 Previous Rx's Medication Instructions Recorded lorazepam 1 mg tablet 1 mg PO QID #40 tabs 06/30/21 nicotine 21 mg/24 hr daily 21 mg TD DAILYP PRN Nicotine 06/30/21 transdermal patch Cravings #30 patches warfarin 5 mg tablet 5 mg PO 1700 #30 tabs 06/30/21 amoxicillin 500 mg tablet 500 mg PO TID 10 days #30 tabs 09/11/23 benzonatate 100 mg capsule 100 mg PO TIDP PRN Cough #30 caps 09/11/23 hydroxyzine HCl 25 mg tablet 25 mg PO BID PRN anxiety #20 tabs 09/11/23 Allergies Allergy/AdvReac Type Severity Reaction Status Date / Time No Known Allergies Allergy Verified 09/11/23 19:52 [facility] Disclaimer: The information contained in this section may have been updated after the patient was seen, as this information can be updated by other users. Social History Smoking Status: Current every day smoker alcohol intake: current alcohol intake frequency: 3 or more drinks per day current occupational status: disabled Travel in the last 8 weeks: None household members: spouse ROS Obtained: Yes All systems reviewed & no additional complaints except as documented Constitutional Constitutional: Denies chills and Denies fever(s) Eyes Eyes: Denies eye discharge ENT Ears, Nose, Mouth, and Throat: Denies dizziness, Denies otalgia and Denies sore throat Cardiovascular Cardiovascular: Reports as per HPI, Denies chest pain, Denies dyspnea, Denies dyspnea on exertion, Denies edema and Denies pedal edema Respiratory Respiratory: Denies shortness of breath, Reports chest congestion, Reports cough, Denies dyspnea, Denies dyspnea on exertion, Denies stridor and Denies wheezing Gastrointestinal Gastrointestingal: Denies nausea or vomiting Musculoskeletal Musculoskeletal: Reports system reviewed and no additional complaints, except as documented and Denies arthralgias Integumentary/Breasts Skin/Breast: Denies rash Neurologic Neurologic: Denies dizziness and Denies paresthesias Allergic/Immunologic Allergic/Immunologic: Denies wheezing Physical Exam General General appearance: alert and in no apparent distress Head Head exam: atraumatic, normocephalic and normal inspection Eye Eye exam: Present normal appearance, PERRL and EOMI ENT ENT exam: Present normal exam, normal oropharynx, mucous membranes moist, TM's normal bilaterally and normal external ear exam Neck Neck exam: Present normal inspection, full ROM and trachea midline; Absent meningismus or lymphadenopathy Chest Chest inspection: Present normal inspection and symmetric chest wall rise; Absent tenderness Respiratory Respiratory exam: Present normal lung sounds bilaterally; Absent respiratory distress Cardiovascular Cardiovascular exam: Present regular rate and normal rhythm; Absent JVD Abdominal Exam Abdominal exam: Present soft and normal bowel sounds; Absent distention, tenderness or guarding Extremities Exam Extremities exam: Present normal inspection, full ROM and normal capillary refill; Absent calf tenderness Back Exam Back exam: Present normal inspection; Absent tenderness Neurological Exam Neurological exam: Present alert and oriented X3 Psychiatric Psychiatric exam: Present normal affect and normal mood Skin Skin exam: Present warm, dry, intact and normal color Lymphatic Lymphatic Findings: no adenopathy Medical Decision Making Medical Records Medical records reviewed: No I reviewed the patient's medical records. Ar Inquiry Pt receiving controlled substance: No Lab Data Lab results reviewed: Yes I reviewed the patient's lab results. Orders (Tests/Meds): ORDERS Category Date Time Status Chest XR 2 view (NOT portable) [XR chest 2V] Stat Exams 09/11/23 19:26 Taken
[2023-09-11 20:38] VITALS: BP 133/90; PULSE 111; RESP 18; TEMP 36.8; O2SAT 97
== END 2023-09-11 20:38 | disposition home or self-care (01) ==
PROVIDERS: Emergency Provider Emergency Medicine; PCP Family Medicine
DX: J20.9 Acute bronchitis, unspecified (principal); R05.9 Cough, unspecified; F17.210 Nicotine dependence, cigarettes, uncomplicated
CPT/HCPCS: 71046; 99212; 99214; G0463